=== PATIENT | female | born 1990 | race Caucasian/White ===

== ENCOUNTER → 2020-11-27 | Outpatient (CLI) | payer OTHER ==
[~2020-11-27] MED LIST: Bactrim Ds Tab1 EACH PO; CLON.2 PO; CYCL10 PO; IBUP600 PO; Keflex500 MG PO; PROC10 PO; PROM25 PO; RXHYDACE PO
== END | disposition home or self-care (01) ==
LOC: LAB EV 13:12 → LAB SHORT 13:12
DX: L03.119 Cellulitis of unspecified part of limb (principal)
CPT/HCPCS: 87070; 87075; 87077; 87147; 87186; 87205

== ENCOUNTER 2021-05-09 16:55 | Inpatient (IN) | payer OTHER ==
[2021-05-09 19:03] LABS: BASOPHILS ABSOLUTE AUTO 0.05 K/mm3 (0.00-0.23); BASOPHILS PERCENT AUTO 0 % (0-2); EOSINOPHILS ABSOLUTE AUTO 0.03 K/mm3 (0.00-0.68); EOSINOPHILS PERCENT AUTO 0 % (0-6); Hematocrit 39.4 % (33.0-51.0); Hemoglobin 12.8 g/dL (11.5-16.0); IMMATURE GRAN ABSOLUTE AUTO 0.12 K/mm3 (0.00-0.10); IMMATURE GRAN PERCENT AUTO 1 % (0-1); LYMPHOCYTES ABSOLUTE AUTO 1.29 K/mm3 (0.84-5.20); LYMPHOCYTES PERCENT AUTO 10 % (21-46); MONOCYTES ABSOLUTE AUTO 0.85 K/mm3 (0.16-1.47); MONOCYTES PERCENT AUTO 6 % (4-13); Mean Corpuscular HGB 25.7 pg (26.0-34.0); Mean Corpuscular HGB Conc 32.5 g/dL (31.5-36.5); Mean Corpuscular Volume 79 fL (80-100); NEUTROPHILS PERCENT AUTO 83 % (41-73); RDW Coefficient Variation 14.4 % (11.7-14.2); RDW Standard Deviation 41.2 fL (35.1-46.3); Red Blood Cell Count 4.98 M/mm3 (3.80-5.20); White Blood Cell Count 13.44 K/mm3 (4.00-11.30)
[2021-05-09 19:04] LABS: Mean Platelet Volume 12.2 fL (9.1-12.4); Platelet Count 306 K/mm3 (150-400)
[2021-05-09 19:18] LABS: SARS-Cov-2 (COVID-19) PCR, MMC NEGATIVE (NEGATIVE)
[2021-05-09 19:27] LABS: Alanine Aminotransfer (ALT/SGP 39 U/L (12-78); Albumin/Globulin Ratio 0.3 (0.8-1.8); Alk Phos 416 U/L (50-136); Anion Gap 7 mmol/L (6-16); Aspartate Aminotrans (AST/SGOT 32 U/L (12-37); Bilirubin, Total 0.6 mg/dL (0.1-1.0); Blood Urea Nitrogen 9 mg/dL (8-24); Bun/Creatinine Ratio 12.9 (12.0-20.0); CO2, Blood 22 mmol/L (21-32); Chloride, Blood 107 mmol/L (98-108); Globulin, Blood 5.9 g/dL (2.2-4.0); Glomerular Filtration Rate >60 (60-); Glucose, Blood 90 mg/dL (70-99); Sodium, Blood 136 mmol/L (136-145); Total Protein, Blood 7.9 g/dL (6.4-8.2)
--- NOTE | 2021-05-09 23:00 | NUR ---
PT SHARES THAT SHE INJECTS HEROIN DAILY AND METH OCCASIONALLY INTO HER THIGH MUSCLES BECAUSE SHE CAN NO LONGER FIND ANY VEINS. SHE STATES THAT SHE GOT TOGETHER WITH HER EX BOYFRIEND AND USED DRUGS AND HAS BEEN STRUGGLING SINCE. UNK HOW LONG AGO. SHE STATES THAT HER CURRENT BOYFRIEND, MARY, IS THE FOB, AND THAT HE ALSO USES DRUGS OCCASIONALLY. SHE STATES THAT SHE LAST USED TODAY BEFORE COMING TO THE HOSPITAL. SHE SHARES THAT SHE HAS TRIED MULTIPLE DRUG REHAB PROGRAMS INCLUDING INPATIENT PROGRAMS AND HAS NOT BEEN SUCCESSFUL. SHE HOPES THAT BEING A MOTHER WILL BE THE MOTIVATION SHE NEEDS TO QUIT USING. SHE HAS CLOSE FAMILY IN TOWN THAT SHE IS IN GOOD STANDING WITH AND STATES THAT THEY ARE A GOOD SUPPORT SYSTEM. SHE IS CURRENTLY LIVING WITH BOYFRIEND, MARY. SHE WILLINGLY OFFERS TO DO UDS AND IS OK WITH UDS ON BABY AND UDERSTANDS THAT CPS WILL BE CONSULTED DUE TO HER DRUG USE.
--- NOTE | 2021-05-09 23:15 | NUR ---
WOUND ASSESSMENT- PT HAS MULTIPLE OPEN ULCERATIONS ON R AND L THIGH FROM IM INJECTION OF METH AND HEROIN. SHE REPORTS SHE LAST USED HEROIN TODAY AND METH YESTERDAY. MULTIPLE ULCERATIONS NOTED MEASURING 3MM-1CM AND APPROX 5MM DEEP. SOME ARE WEEPING CLEAR YELLOW FLUID. WOUNDS ARE CLEANSED WITH SKINTEGRITY SPRAY AND DRESSING WITH NONSTICK DRESSINGS AND MEFIX TAPE. SKIN IS FIRAM AND RED AROUND OPEN SORES. CX SENT, PENDING RESULTS.
[2021-05-10 05:36] LABS: BASOPHILS ABSOLUTE AUTO 0.04 K/mm3 (0.00-0.23); BASOPHILS PERCENT AUTO 0 % (0-2); EOSINOPHILS ABSOLUTE AUTO 0.02 K/mm3 (0.00-0.68); EOSINOPHILS PERCENT AUTO 0 % (0-6); Hematocrit 34.5 % (33.0-51.0); Hemoglobin 11.1 g/dL (11.5-16.0); IMMATURE GRAN PERCENT AUTO 1 % (0-1); LYMPHOCYTES ABSOLUTE AUTO 1.57 K/mm3 (0.84-5.20); LYMPHOCYTES PERCENT AUTO 13 % (21-46); MONOCYTES ABSOLUTE AUTO 0.92 K/mm3 (0.16-1.47); MONOCYTES PERCENT AUTO 7 % (4-13); Mean Corpuscular HGB 26.1 pg (26.0-34.0); Mean Corpuscular HGB Conc 32.2 g/dL (31.5-36.5); Mean Corpuscular Volume 81 fL (80-100); Mean Platelet Volume 12.1 fL (9.1-12.4); NEUTROPHILS ABSOLUTE AUTO 9.75 K/mm3 (1.96-9.15); NEUTROPHILS PERCENT AUTO 79 % (41-73); Platelet Count 278 K/mm3 (150-400); RDW Coefficient Variation 14.5 % (11.7-14.2); RDW Standard Deviation 41.6 fL (35.1-46.3); Red Blood Cell Count 4.26 M/mm3 (3.80-5.20)
[2021-05-10 08:14] LABS: HBSAG SCREEN Negative (Negative); HIV SCREEN 4TH GENERATION WRFX Non Reactive (Non Reactive)
--- NOTE | 2021-05-10 16:19 | NUR ---
PATIENT MET WITH MICHAEL GUNN FROM [facility], SHE WAS MADE AWARE THAT SHE COULD BE DISCHARGED TO [facility] AND REMAIN AT THE HOSPITAL ASSIST WITH HER NB'S CARE. SHE DECLINED AND DISCHARGED TO HOME INSTEAD. HER PARTNER MARY HUERTA, PICKED HER UP AND SHE LEFT THE HOSPITAL. SINCE 0700 THIS MORNING IDANIA HAS ONLY VISITED HER 1 TIME, WHEN I ESCORTED HER TO THE NURSERY. SHE WAS TOLD THAT SHE COULD VISIT OFTEN SHE'D LIKE DURING HER STAY. UPON DISCHARGE SHE WAS GIVEN THE DIRECT TELEPHONE NUMBER TO THE NURSERY AND WE SET UP A PASSWORD SYSTEM THAT WOULD ALLOW HER TO RECEIVE INFORMATION REGARDING HER SON'S CARE FROM THE [facility] NURSE. HER CHOSEN PASSWORD IS "KOREY"
[2021-05-12 10:11] LABS: HEPATITIS C QUANTITATION HCV Not Detected IU/mL (.)
== END 2021-05-10 16:07 | disposition home or self-care (01) | DRG 806 ==
LOC: OBS 16:55 → BC 17:25
PROVIDERS: ADMIT Obstetrics & Gynecology
PROC: 10E0XZZ Delivery of Products of Conception, External Approach (ICD-10-PCS; principal; 2021-05-09)
PROC: 0UQMXZZ Repair Vulva, External Approach (ICD-10-PCS; 2021-05-09)
DX: O60.14X0 Preterm labor third trimester with preterm delivery third trimester, not applicable or unspecified (principal); O99.324 Drug use complicating childbirth; Z37.0 Single live birth; L02.818 Cutaneous abscess of other sites; O98.42 Viral hepatitis complicating childbirth; Z20.822 Contact with and (suspected) exposure to COVID-19; Z3A.35 35 weeks gestation of pregnancy; O70.0 First degree perineal laceration during delivery; F11.10 Opioid abuse, uncomplicated; O99.72 Diseases of the skin and subcutaneous tissue complicating childbirth; B19.20 Unspecified viral hepatitis C without hepatic coma; O77.0 Labor and delivery complicated by meconium in amniotic fluid; O99.824 Streptococcus B carrier state complicating childbirth; F15.10 Other stimulant abuse, uncomplicated; O99.334 Smoking (tobacco) complicating childbirth; F17.210 Nicotine dependence, cigarettes, uncomplicated; Z79.899 Other long term (current) drug therapy
CPT/HCPCS: 36415; 80053; 85025; 86592; 86850; 86900; 86901; 87070; 87075; 87077; 87147; 87186; 87205; 87340; 87389; 87522; A9270; J0290; J2210; J2590; J7120; U0004

== ENCOUNTER → 2021-06-28 | Outpatient (CLI) | payer OTHER | LOC: LAB SHORT 17:15 → LAB 17:15 | DX: L02.91 Cutaneous abscess, unspecified (principal) | CPT/HCPCS: 87070; 87077; 87147; 87186; 87205 ==

== ENCOUNTER → 2021-07-10 | Outpatient (CLI) | payer OTHER | END | disposition home or self-care (01) | LOC: LAB SHORT 14:44 → LAB 14:44 | DX: F11.20 Opioid dependence, uncomplicated (principal) | CPT/HCPCS: G0480 ==

== ENCOUNTER → 2021-07-17 | Outpatient (CLI) | payer OTHER ==
[2021-07-17 16:28] LABS: U Amphetamine Screen Not Detected; U Barbituate Screen Not Detected; U Benzodiazapine Screen Not Detected; U Buprenorphine Screen DETECTED; U Cannabinoids Screen Not Detected; U Cocaine Screen Not Detected; U Methadone Screen Not Detected; U Methamphetamine Screen Not Detected; U Opiates Screen DETECTED; U Oxycodone Screen Not Detected; U Phencyclidine Screen Not Detected; U Propoxyphene Screen Not Detected
== END | disposition home or self-care (01) ==
LOC: LAB SHORT 14:58
PROVIDERS: Family Medicine
DX: F15.10 Other stimulant abuse, uncomplicated (principal)

== ENCOUNTER → 2021-07-24 | Outpatient (CLI) | payer OTHER | LOC: LAB SHORT 17:24 → LAB 17:24 | DX: F11.20 Opioid dependence, uncomplicated (principal) | CPT/HCPCS: G0480 ==

== ENCOUNTER → 2021-07-31 | Outpatient (CLI) | payer OTHER | LOC: LAB 20:09 → LAB SHORT 20:09 | DX: F11.20 Opioid dependence, uncomplicated (principal) | CPT/HCPCS: G0480 ==

== ENCOUNTER → 2021-08-07 | Outpatient (CLI) | payer OTHER | END | disposition home or self-care (01) | LOC: LAB SHORT 15:23 → LAB 15:23 | DX: F15.20 Other stimulant dependence, uncomplicated (principal) ==

== ENCOUNTER → 2021-08-14 | Outpatient (CLI) | payer OTHER | LOC: LAB 17:52 → LAB SHORT 17:52 | DX: F11.20 Opioid dependence, uncomplicated (principal) | CPT/HCPCS: G0480 ==